=== PATIENT | female | born 2005 | race Caucasian/White ===

== ENCOUNTER 2023-08-24 21:07 | Emergency (ER) | payer BC ==
[~2023-08-24] VITALS: Ht 172 cm; Wt 63.0 kg
[2023-08-24] MEDS ORDERED: cefTRIAXone IV/IM 1,000 MG in NS (IVPB) 50 ML 50 ML IV STA (21:20)
[2023-08-24] MEDS ORDERED: NS IV 1000 ML 1,000 ML IV STA (21:21)
--- NOTE | 2023-08-24 21:25 | ED GU-Female ---
General Chief Complaint: - Reproductive Stated Complaint: UTI Nursing Triage Note: PT TO ED W/ C/O UTI SYMPTOMS. PT REPORTS WAS SEEN AT URGENT CARE YESTERDAY ET DX W/ UTI, PRESCRIBED AN ABX THAT STARTS W/ "F". C/O N/V, CHILLS, PAIN ET BURNING UPON URINATION Source: patient Exam Limitations: no limitations (NOVA WALKER) History of Present Illness Date Seen by Provider: Aug 24, 2023 Time Seen by Provider: 21:23 Initial Comments Patient is a 18-year-old female presents ED with urinary symptoms. She states symptoms started yesterday. Started having pain with urination frequent urination. She states she was seen at urgent care was given Macrobid but states his symptoms are getting worse. She reports lower back discomfort feeling feverish with episodes of vomiting today. She has a history of pyelonephritis. Last infection was 1 to 2 months ago. She denies having lower abdominal pain, cough, chest pain, sore throat or ear pain. She states this feels very similar to her last infection. Not concern for . No vaginal discharge, Vaginal bleeding. She did note some blood in her urine this evening. Not concern for STD (NOVA WALKER) Allergies and Home Medications Allergies Coded Allergies: No Known Drug Allergies (Unverified , 08/24/23) Patient Home Medication List Home Medication List Reviewed: Yes (NOVA WALKER) Cefdinir (Cefdinir) 300 Mg Capsule, 300 MG PO BID Prescribed by: KARLEY ALFARO on 08/24/23 8206 Review of Systems Review of Systems Constitutional: chills; No diaphoresis; fever, malaise, weakness EENTM: No hearing loss, No ear pain, No blurred vision Respiratory: No cough, No dyspnea on exertion Cardiovascular: No chest pain Gastrointestinal: No abdominal pain, No diarrhea, No nausea, No vomiting Genitourinary: burning, discharge, dysuria, frequency Musculoskeletal: back pain; No joint pain Skin: No change in color, No change in hair/nails (NOVA WALKER) All Other Systemes Reviewed Negative Unless Noted: Yes (NOVA WALKER) Past Qewdeod-Qyrqcm-Cvlbau Hx Patient Social History Tobacco Use?: No Use of E-Cig and/or Vaping dev: No Substance use?: No Alcohol Use?: No Pt feels they are or have been: No (NOVA WALKER) Past Medical History Surgery/Hospitalization HX: DENIES (NOVA WALKER) Physical Exam Vital Signs Vital Signs - First Documented 08/24/23 21:14 Temp 37.2 Pulse 122 Resp 20 B/P (MAP) 141/84 (103) Pulse Ox 99 O2 Delivery Room Air (LEONARD,ERICH K DO) Vital Signs Capillary Refill : Less Than 3 Seconds (NOVA WALKER) Height, Weight, BMI Height: '" Weight: lbs. oz. kg; 21.00 BMI Method: General Appearance: WD/WN, no apparent distress HEENT: PERRL/EOMI, normal ENT inspection, TMs normal, pharynx normal Neck: non-tender, full range of motion, supple Cardiovascular: regular rate, rhythm, no edema, no gallop, no JVD Respiratory: chest non-tender, lungs clear, normal breath sounds, no respiratory distress Gastrointestinal: normal bowel sounds, non tender, soft Back: normal inspection, no CVA tenderness, CVA tenderness (R), CVA tenderness (L) Extremities: normal range of motion, non-tender, normal inspection Neurologic/Psychiatric: it infrastructure consultant II-XII nml as tested, no motor/sensory deficits, alert, normal mood/affect, oriented x 3 Skin: normal color, warm/dry (NOVA WALKER) Progress/Results/Core Measures Suspected Sepsis SIRS Temperature: Pulse: 122 Respiratory Rate: 20 Laboratory Tests 08/24/23 21:30: White Blood Count 12.1H Blood Pressure 141 /84 Mean: 103 Laboratory Tests 08/24/23 21:30: Creatinine 0.74, Platelet Count 287, Total Bilirubin 0.3 (NOVA WALKER) Results/Orders Lab Results Laboratory Tests Test 08/24/23 21:30 08/24/23 22:23 Range/Units White Blood Count 12.1 H 4.3-11.0 10^3/uL Red Blood Count 4.71 3.80-5.11 10^6/uL Hemoglobin 13.3 11.5-16.0 g/dL Hematocrit 40 35-52 % Mean Corpuscular Volume 84 80-99 fL Mean Corpuscular Hemoglobin 28 25-34 pg Mean Corpuscular Hemoglobin Concent 34 32-36 g/dL Red Cell Distribution Width 12.2 10.0-14.5 % Platelet Count 287 130-400 10^3/uL Mean Platelet Volume 9.8 9.0-12.2 fL Immature Granulocyte % (Auto) 1 % Neutrophils (%) (Auto) 87 H 42-75 % Lymphocytes (%) (Auto) 4 L 12-44 % Monocytes (%) (Auto) 8 0-12 % Eosinophils (%) (Auto) 0 0-10 % Basophils (%) (Auto) 0 0-10 % Neutrophils # (Auto) 10.5 H 1.8-7.8 10^3/uL Lymphocytes # (Auto) 0.5 L 1.0-4.0 10^3/uL Monocytes # (Auto) 1.0 0.0-1.0 10^3/uL Eosinophils # (Auto) 0.0 0.0-0.3 10^3/uL Basophils # (Auto) 0.0 0.0-0.1 10^3/uL Immature Granulocyte # (Auto) 0.1 0.0-0.1 10^3/uL Neutrophils % (Manual) 71 % Lymphocytes % (Manual) 2 % Monocytes % (Manual) 4 % Eosinophils % (Manual) 1 % Band Neutrophils 22 % Platelet Estimate ADEQUATE Blood Morphology Comment NORMAL Sodium Level 137 135-145 MMOL/L Potassium Level 3.7 3.6-5.0 MMOL/L Chloride Level 104 98-107 MMOL/L Carbon Dioxide Level 19 L 21-32 MMOL/L Anion Gap 14 5-14 MMOL/L Blood Urea Nitrogen 10 7-18 MG/DL Creatinine 0.74 0.60-1.30 MG/DL Estimat Glomerular Filtration Rate 119 BUN/Creatinine Ratio 14 Glucose Level 100 70-105 MG/DL Calcium Level 9.0 8.5-10.1 MG/DL Corrected Calcium 9.0 8.5-10.1 MG/DL Total Bilirubin 0.3 0.1-1.0 MG/DL Aspartate Amino Transf (AST/SGOT) 20 5-34 U/L Alanine Aminotransferase (ALT/SGPT) 19 0-55 U/L Alkaline Phosphatase 73 40-136 U/L C-Reactive Protein High Sensitivity 9.25 H 0.00-0.50 MG/DL Total Protein 7.1 6.4-8.2 GM/DL Albumin 4.0 3.2-4.5 GM/DL Urine Color YELLOW Urine Clarity CLOUDY Urine pH 6.0 5-9 Urine Specific [place] >=1.030 1.016-1.022 Urine Protein 2+ H NEGATIVE Urine Glucose (UA) NEGATIVE NEGATIVE Urine Ketones 2+ H NEGATIVE Urine Nitrite NEGATIVE NEGATIVE Urine Bilirubin 1+ H NEGATIVE Urine Urobilinogen 1.0 < = 1.0 MG/DL Urine Leukocyte Esterase 1+ H NEGATIVE Urine RBC (Auto) 2+ H NEGATIVE Urine RBC 10-25 H /HPF Urine WBC 25-50 H /HPF Urine Squamous Epithelial Cells 25-50 H /HPF Urine Crystals PRESENT H /LPF Urine Amorphous Sediment RARE GOVIND URATES H /LPF Urine Bacteria FEW H /HPF Urine Casts NONE /LPF Urine Mucus MODERATE H /LPF Urine Culture Indicated YES Urine Test NEGATIVE NEGATIVE (ERICH VALLE DO) Micro Results Microbiology 08/24/23 Urine Culture - Final, Complete NO GROWTH (ERICH VALLE DO) Vital Signs/I&O 08/25/23 00:00 Intake Total 1050 ml Balance 1050 ml (ERICH VALLE DO) Vital Signs/I&O Capillary Refill : Less Than 3 Seconds (NOVA WALKER) Blood Pressure Mean: 103 Departure Communication (PCP) Patient is a 18-year-old female who presents to the ED for urinary symptoms. History of pyelonephritis she states she was diagnosed 1 to 2 months ago. She got better on oral antibiotics. Denies any vaginal bleeding or vaginal discharge or concern for STDs . she states today symptoms feel very similar. Patient Was started on Macrobid yesterday. Patient was tachycardic but afebrile. Lab work was ordered. CBC showed an elevated white blood count of 12, bands, left shift. Chemistry grossly unremarkable besides CRP at 9. Urinalysis positive for infection negative for . After reviewing lab work suggest blood cultures as patient did meet SIRS criteria after the reutrn of her blood work. She states she needed to leave She did recieve a liter of fluid. Went ahead and gave her a dose of Rocephin 1g. Suggest changing Macrobid to cefdinir. Her heart rate did improve to 98 after initial fluids on arrival. Recommend a second liter. She does not appear to toxic however I am concerned that she may be developing pyelo-. She does have bilateral flank discomfort. No vomiting here. Denies of any specific abdominal pain. She had no abdominal tenderness on palpation. Denies history of kidney stones. Suggest if pain worsens she needs return back to ED for IV fluids, lab work CT abdomen and pelvis to rule out complications secondary to pyelonephritis such as abscess. Other etiologies would be concern for obstructing stone which may need sooner intervention. She acknowledges. Suggest follow-up your PCP in 1 to 2 days for reevaluation. (NOVA WALKER) Impression Primary Impression: Pyelonephritis Disposition: HOME, SELF-CARE Condition: Stable Departure-Patient Inst. Decision time for Depature: 22:42 (NOVA WALKER) Referrals: NO,LOCAL PHYSICIAN (PCP) [facility] Care Phys[place] [facility] [place] Instructions: Urinary tract infections in adults Add. Discharge Instructions: If any worsening pain fever vomiting to return back to ED. recommend ibuprofen or Tylenol for pain or fever. All discharge instructions reviewed with patient and/or family. Voiced understan artem. Scripts Cefdinir (Cefdinir) 300 Mg Capsule 300 MG PO BID for 10 Days, #20 CAP Prov: NOVA WALKER 08/24/23 Work/School Note: Work Release Form Date Seen in the Emergency Department: Aug 24, 2023 Return to Work: Aug 27, 2023 ATTENDING PHYSICIAN NOTE: I WAS PHYSICALLY PRESENT ER PHYSICIAN, BUT I WAS NOT INVOLVED IN ANY DECISION MAKING OR ANY CARE OF THIS PATIENT AND I AM NOT COLLABORATING PHYSICIAN. (ERICH VALLE DO) NOVA WALKER Aug 24, 2023 21:25 ERICH VALLE DO Aug 25, 2023 18:04
[2023-08-24 21:39] LABS: BASOPHILS % (AUTO) 0 % (0-10); EOSINOPHILS % (AUTO) 0 % (0-10); HEMATOCRIT 40 % (35-52); HEMOGLOBIN 13.3 g/dL (11.5-16.0); LYMPHOCYTES # (AUTO) 0.5 10^3/uL (1.0-4.0); LYMPHOCYTES % (AUTO) 4 % (12-44); MEAN CORPUSCULAR HEMOGLOBIN 28 pg (25-34); MEAN CORPUSCULAR HGB CONC 34 g/dL (32-36); MEAN CORPUSCULAR VOLUME 84 fL (80-99); MEAN PLATELET VOLUME 9.8 fL (9.0-12.2); MONOCYTES % (AUTO) 8 % (0-12); NEUTROPHILS # (AUTO) 10.5 10^3/uL (1.8-7.8); NEUTROPHILS % (AUTO) 87 % (42-75); PLATELET COUNT 287 10^3/uL (130-400); WHITE BLOOD COUNT 12.1 10^3/uL (4.3-11.0)
[2023-08-24 22:18] LABS: BILIRUBIN,TOTAL 0.3 MG/DL (0.1-1.0); CREATININE SERUM 0.74 MG/DL (0.60-1.30); POTASSIUM 3.7 MMOL/L (3.6-5.0); TOTAL PROTEIN 7.1 GM/DL (6.4-8.2)
[2023-08-24 22:22] LABS: BAND NEUTROPHILS 22 %; EOSINOPHILS % (MANUAL) 1 %; LYMPHOCYTES % (MANUAL) 2 %; MONOCYTES % (MANUAL) 4 %; NEUTROPHILS % (MANUAL) 71 %; PLATELET ESTIMATE ADEQUATE; RBC MORPH NORMAL
[2023-08-24 22:36] LABS: BACTERIA,URINE FEW /HPF; BILIRUBIN,URINE 1+ (NEGATIVE); CLARITY,URINE CLOUDY; COLOR,URINE YELLOW; GLUCOSE, URINE (UA) NEGATIVE (NEGATIVE); KETONES,URINE 2+ (NEGATIVE); LEUKOCYTE ESTERASE ,URINE 1+ (NEGATIVE); NITRITE,URINE NEGATIVE (NEGATIVE); PROTEIN,URINE 2+ (NEGATIVE); SQUAMOUS EPITHELIAL CELL,UR 25-50 /HPF; WBC,URINE 25-50 /HPF
[2023-08-24 22:37] LABS: AMORPHOUS SEDIMENT,UR RARE AMOR URATES /LPF
[2023-08-24] MEDS ORDERED: CEFD300C3 PO (22:45)
[2023-08-24 22:50] VITALS: BP 120/77
== END 2023-08-24 22:50 | disposition home or self-care (01) ==
LOC: ER 21:11
DX: N12 Tubulo-interstitial nephritis, not specified as acute or chronic (principal)
CPT/HCPCS: 36415; 80053; 81000; 84703; 85007; 85027; 86141; 87088; 96361; 96365

== ENCOUNTER 2023-10-03 15:07 | Emergency (ER) | payer BC ==
[~2023-10-03] VITALS: Ht 172.7 cm; Wt 63.5 kg
[~2023-10-03 15:07] MED LIST: CEFD300C3 PO
[2023-10-03] MEDS ORDERED: NS IV 1000 ML 1,000 ML IV SCH ×2 (15:30→17:00)
--- NOTE | 2023-10-03 15:32 | ED GU-Female ---
General Chief Complaint: - Reproductive Stated Complaint: BACK PAIN, NAUSEA, BURING W/URINATION Nursing Triage Note: PATIENT C/O LOWER BACK PAIN, PAINFUL URINATION, AND NAUSEA THAT STARTED A FEW DAYS AGO. PATIENT STATES SHE HAD A FEVER LAST NIGHT AND TODAY, BUT DENIES TAKING HER TEMP. PATIENT STATES SHE WAS TREATED FOR A UTI ON 09-22-2023 BY HER PCP. PATIENT DENIES HER SYMPTOMS IMPROVING WITH THE ANTIBIOTICS PRESCRIBED AT THAT TIME. PATIENT DENIES TAKING ANY MEDICATIONS TODAY TO TREAT C/O FEVER OR PAIN. Source: patient Exam Limitations: no limitations (SHIRIN ANGELO APRN) History of Present Illness Date Seen by Provider: Oct 03, 2023 Time Seen by Provider: 15:10 Initial Comments 18-year-old female presents to the ER with complaint of lower back pain, fevers and chills, burning with urination. She was diagnosed with a UTI on 09/22 and finished her antibiotic yesterday. States that her symptoms have not improved. She reports history of kidney infections, states she has had 2 in the last 4 months. She denies abdominal pain. Reports some nausea, denies vomiting. Denies vaginal bleeding or discharge, last menstrual cycle was September 12, last bowel movement was yesterday and normal. (SHIRIN ANGELO APRN) Allergies and Home Medications Allergies Coded Allergies: No Known Drug Allergies (Unverified , 08/24/23) Patient Home Medication List Home Medication List Reviewed: Yes (SHIRIN ANGELO APRN) Cefdinir (Cefdinir) 300 Mg Capsule, 300 MG PO BID Prescribed by: KARLEY ALFARO on 08/24/23 2247 Metronidazole (Metronidazole) 500 Mg Tablet, 500 MG PO BID Prescribed by: Shirin Epps on 10/03/23 1856 Review of Systems Review of Systems Constitutional: see HPI (SHIRIN ANGELO APRN) Past Aychbkq-Lcqrpy-Tljemi Hx Patient Social History Tobacco Use?: No Use of E-Cig and/or Vaping dev: No Substance use?: No Alcohol Use?: Yes Alcohol Frequency: Once in a while Pt feels they are or have been: No (SHIRIN ANGELO APRN) Immunizations Up To Date Influenza Vaccine Up-to-Date: No; Not Current (SHIRIN ANGELO APRN) Past Medical History Surgery/Hospitalization HX: DENIES Last Menstrual Period: Sep 12, 2023 (SHIRIN AGNELO APRN) Physical Exam Vital Signs Vital Signs - First Documented 10/03/23 15:12 Temp 38.0 Pulse 120 Resp 14 B/P (MAP) 121/68 (85) O2 Delivery Room Air (DISHA TURNER MD) Vital Signs Capillary Refill : (SHIRIN ANGELO APRN) Height, Weight, BMI Height: '" Weight: lbs. oz. kg; 21.00 BMI Method: General Appearance: WD/WN, no apparent distress Neck: supple, normal inspection Cardiovascular: tachycardia Respiratory: lungs clear, normal breath sounds, no respiratory distress, no accessory muscle use Back: CVA tenderness (R), CVA tenderness (L) Extremities: normal range of motion, normal inspection Neurologic/Psychiatric: alert, normal mood/affect Skin: normal color, warm/dry (SHIRIN ANGELO APRN) Focused Exam Lactate Level 10/03/23 15:20: Lactic Acid Level 0.76 (DISHA TURNER MD) Progress/Results/Core Measures Suspected Sepsis SIRS Temperature: Pulse: 120 Respiratory Rate: 14 Laboratory Tests 10/03/23 15:20: White Blood Count 9.4 Blood Pressure 121 /68 Mean: 85 10/03/23 15:20: Lactic Acid Level 0.76 Laboratory Tests 10/03/23 15:20: Creatinine 0.81, Platelet Count 327, Total Bilirubin 0.3 10/03/23 15:46: INR Comment 1.1 (SHIRIN ANGELO APRN) Results/Orders Lab Results Laboratory Tests Test 10/03/23 15:20 10/03/23 15:43 10/03/23 15:46 10/03/23 17:39 Range/Units White Blood Count 9.4 4.3-11.0 10^3/uL Red Blood Count 4.59 3.80-5.11 10^6/uL Hemoglobin 13.0 11.5-16.0 g/dL Hematocrit 39 35-52 % Mean Corpuscular Volume 84 80-99 fL Mean Corpuscular Hemoglobin 28 25-34 pg Mean Corpuscular Hemoglobin Concent 34 32-36 g/dL Red Cell Distribution Width 13.2 10.0-14.5 % Platelet Count 327 130-400 10^3/uL Mean Platelet Volume 10.0 9.0-12.2 fL Immature Granulocyte % (Auto) 0 % Neutrophils (%) (Auto) 85 H 42-75 % Lymphocytes (%) (Auto) 4 L 12-44 % Monocytes (%) (Auto) 11 0-12 % Eosinophils (%) (Auto) 0 0-10 % Basophils (%) (Auto) 0 0-10 % Neutrophils # (Auto) 8.0 H 1.8-7.8 10^3/uL Lymphocytes # (Auto) 0.4 L 1.0-4.0 10^3/uL Monocytes # (Auto) 1.0 0.0-1.0 10^3/uL Eosinophils # (Auto) 0.0 0.0-0.3 10^3/uL Basophils # (Auto) 0.0 0.0-0.1 10^3/uL Immature Granulocyte # (Auto) 0.0 0.0-0.1 10^3/uL Neutrophils % (Manual) 70 % Lymphocytes % (Manual) 5 % Monocytes % (Manual) 6 % Eosinophils % (Manual) 1 % Basophils % (Manual) 1 % Band Neutrophils 17 % Platelet Estimate ADEQUATE Poikilocytosis SLIGHT Sodium Level 133 L 135-145 MMOL/L Potassium Level 3.9 3.6-5.0 MMOL/L Chloride Level 105 98-107 MMOL/L Carbon Dioxide Level 17 L 21-32 MMOL/L Anion Gap 11 5-14 MMOL/L Blood Urea Nitrogen 9 7-18 MG/DL Creatinine 0.81 0.60-1.30 MG/DL Estimat Glomerular Filtration Rate 107 BUN/Creatinine Ratio 11 Glucose Level 83 70-105 MG/DL Lactic Acid Level 0.76 0.50-2.00 MMOL/L Calcium Level 9.2 8.5-10.1 MG/DL Corrected Calcium 9.1 8.5-10.1 MG/DL Total Bilirubin 0.3 0.1-1.0 MG/DL Aspartate Amino Transf (AST/SGOT) 17 5-34 U/L Alanine Aminotransferase (ALT/SGPT) 10 0-55 U/L Alkaline Phosphatase 69 40-136 U/L C-Reactive Protein High Sensitivity 3.39 H 0.00-0.50 MG/DL Total Protein 7.3 6.4-8.2 GM/DL Albumin 4.1 3.2-4.5 GM/DL Urine Color YELLOW Urine Clarity CLEAR Urine pH 6.0 5-9 Urine Specific [place] >=1.030 1.016-1.022 Urine Protein 1+ H NEGATIVE Urine Glucose (UA) NEGATIVE NEGATIVE Urine Ketones 4+ H NEGATIVE Urine Nitrite NEGATIVE NEGATIVE Urine Bilirubin 1+ H NEGATIVE Urine Urobilinogen 0.2 < = 1.0 MG/DL Urine Leukocyte Esterase TRACE H NEGATIVE Urine RBC (Auto) NEGATIVE NEGATIVE Urine RBC 0-2 /HPF Urine WBC 2-5 /HPF Urine Squamous Epithelial Cells 25-50 H /HPF Urine Crystals PRESENT H /LPF Urine Amorphous Sediment RARE GOVIND URATES H /LPF Urine Bacteria MODERATE H /HPF Urine Casts NONE /LPF Urine White Blood Cell Casts /LPF Urine Mucus MODERATE H /LPF Urine Culture Indicated NO Prothrombin Time 14.9 H 12.2-14.7 SEC INR Comment 1.1 0.8-1.4 Activated Partial Thromboplast Time 37 H 24-35 SEC Influenza Type A (RT-PCR) Not Detected Not Detecte Influenza Type B (RT-PCR) Not Detected Not Detecte SARS-CoV-2 RNA (RT-PCR) Not Detected Not Detecte Test 10/03/23 17:42 Range/Units (DISHA TURNER MD) Medications Given in ED Current Medications Medications Dose Ordered Sig/Olman Route Start Time Stop Time Status Last Admin Dose Admin Metronidazole 500 mg ONCE ONCE PO 10/03/23 18:45 10/03/23 18:46 DC 10/03/23 18:53 500 MG (DISHA TURNER MD) Vital Signs/I&O 10/03/23 19:02 Pulse 110 Resp 14 B/P (MAP) 107/65 Pulse Ox 99 O2 Delivery Room Air 10/03/23 23:59 Intake Total 1000 ml Balance 1000 ml (DISHA TURNER MD) Vital Signs/I&O Capillary Refill : (SHIRIN ANGELO APRN) Blood Pressure Mean: 85 Progress Note : Progress Note Patient seen and evaluated, resting comfortably in bed, no acute distress. Based on exam and symptoms, I am concerned for septic pyelonephritis. Patient found to be significantly tachycardic and mildly febrile. Septic workup initiated including CBC, CMP, lactic acid, coags, urinalysis, urine . IV fluids and Toradol ordered. 1738 Labs reviewed. CBC shows normal white count, neutrophil percentage elevated 85, lymphocytic percentage decreased 4. CMP shows slightly decreased sodium 133, CO2 decreased 17. Lactic acid normal. CRP slightly elevated at 3.39. Coags show slightly elevated PT 14.9, slightly elevated APTT 37. Urinalysis shows greater than 1.030 urine specific gravity, 1+ protein, 4+ ketones, 1+ bilirubin, trace leukocytes, 0-2 RBCs, 2-5 WBCs, 25-50 squamous epithelial cells, moderate bacteria, rare amorphous urate's, urine crystals are present, moderate urine mucus. Results discussed with patient. Patient does not appear to have a urinary tract infection. Patient appears extremely dehydrated. Second liter of IV fluids have been administered. Symptoms may be related to dehydration, other possibilities would be COVID, flu, vaginal infection. I discussed results with patient. 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 We discussed testing her for COVID, flu, bacterial vaginosis, yeast infection, and STDs. She agrees to testing. 185 COVID and flu negative. Wet prep shows bacterial vaginosis. Negative for yeast and trichomonas. Results discussed with patient. The bacterial vaginosis is likely the cause of her symptoms. Will treat with metronidazole. Patient's heart rate has improved to the low 100s after 2 L of IV fluids. Patient is stable for discharge. Patient instructed to follow-up with primary care provider or [facility] if symptoms continue. Discharge instructions and return pr ecautions provided. (SHIRIN ANGELO APRN) Departure Impression Primary Impression: Bacterial vaginosis Disposition: 01 HOME, SELF-CARE Condition: Stable Departure-Patient Inst. Decision time for Depature: 18:53 (SHIRIN ANGELO APRN) Referrals: NO,LOCAL PHYSICIAN (PCP/Family) Primary Care Physician Patient Instructions: Bacterial Vaginosis ED Add. Discharge Instructions: Complete full course of antibiotic as prescribed. Do not drink any alcohol while taking this medication, it will make you vomit profusely. Make sure you are drinking plenty of water. Follow-up with your primary care provider or [facility] next week if your symptoms or not improving. Return for any new, concerning, or worsening symptoms. All discharge instructions reviewed with patient and/or family. Voiced understanding. Scripts Metronidazole (Metronidazole) 500 Mg Tablet 500 MG PO BID for 7 Days, #13 TAB 0 Refills Prov: SHIRIN ANGELO APRN 10/03/23 ATTENDING PHYSICIAN NOTE: I was physically present as attending physician in the emergency department during the care of this patient. I briefly discussed the labs, clinical presentation, history, and vital signs with Shirin Angelo NP. I did not personally interview or examine this patient. I did not assist with the final disposition or treatment plan. I was not otherwise directly involved in the decision making or delivery of care for this patient. (DISHA TURNER MD) SHIRIN ANGELO APRN Oct 03, 2023 15:31 DISHA TURNER MD Oct 04, 2023 06:36
[2023-10-03 15:37] LABS: BASOPHILS % (AUTO) 0 % (0-10); EOSINOPHILS % (AUTO) 0 % (0-10); HEMATOCRIT 39 % (35-52); LYMPHOCYTES # (AUTO) 0.4 10^3/uL (1.0-4.0); LYMPHOCYTES % (AUTO) 4 % (12-44); MEAN CORPUSCULAR HEMOGLOBIN 28 pg (25-34); MEAN CORPUSCULAR HGB CONC 34 g/dL (32-36); MEAN CORPUSCULAR VOLUME 84 fL (80-99); MONOCYTES % (AUTO) 11 % (0-12); NEUTROPHILS % (AUTO) 85 % (42-75); PLATELET COUNT 327 10^3/uL (130-400); WHITE BLOOD COUNT 9.4 10^3/uL (4.3-11.0)
[2023-10-03 15:44] LABS: ALBUMIN 4.1 GM/DL (3.2-4.5); POTASSIUM 3.9 MMOL/L (3.6-5.0)
[2023-10-03 15:45] LABS: CALCIUM 9.2 MG/DL (8.5-10.1)
[2023-10-03] MEDS ORDERED: KETOROLAC INJ 15 MG/ML VIAL IVP ONE (15:45)
[2023-10-03 15:47] LABS: TOTAL PROTEIN 7.3 GM/DL (6.4-8.2)
[2023-10-03 15:48] LABS: BILIRUBIN,TOTAL 0.3 MG/DL (0.1-1.0)
[2023-10-03 15:50] LABS: CREATININE SERUM 0.81 MG/DL (0.60-1.30)
[2023-10-03 16:18] LABS: BAND NEUTROPHILS 17 %; BASOPHILS % (MANUAL) 1 %; EOSINOPHILS % (MANUAL) 1 %; LYMPHOCYTES % (MANUAL) 5 %; MONOCYTES % (MANUAL) 6 %; NEUTROPHILS % (MANUAL) 70 %
[2023-10-03 16:19] LABS: PLATELET ESTIMATE ADEQUATE; POIKILOCYTOSIS SLIGHT
[2023-10-03 16:27] LABS: INR 1.1 (0.8-1.4); PROTHROMBIN TIME PATIENT 14.9 SEC (12.2-14.7)
[2023-10-03 16:43] LABS: BACTERIA,URINE MODERATE /HPF; BILIRUBIN,URINE 1+ (NEGATIVE); CLARITY,URINE CLEAR; COLOR,URINE YELLOW; GLUCOSE, URINE (UA) NEGATIVE (NEGATIVE); KETONES,URINE 4+ (NEGATIVE); LEUKOCYTE ESTERASE ,URINE TRACE (NEGATIVE); NITRITE,URINE NEGATIVE (NEGATIVE); PROTEIN,URINE 1+ (NEGATIVE); RBC,URINE 0-2 /HPF; SQUAMOUS EPITHELIAL CELL,UR 25-50 /HPF
[2023-10-03 16:44] LABS: AMORPHOUS SEDIMENT,UR RARE AMOR URATES /LPF
[2023-10-03] MEDS ORDERED: metroNIDAZOLE 500 MG TABLET PO ONE (18:45)
[2023-10-03] MEDS ORDERED: METR-145 PO (18:56)
[2023-10-03 19:02] VITALS: BP 107/65
== END 2023-10-03 19:02 | disposition home or self-care (01) ==
LOC: EDUNIT# 15:07 → ER 15:10
DX: N76.0 Acute vaginitis (principal)
CPT/HCPCS: 36415; 80053; 81000; 83605; 84703; 85007; 85027; 85610; 85730; 86141; 87040; 87088; 87210; 87491; 87591; 87636